=== PATIENT | male | born 1995 | race Caucasian/White ===

== ENCOUNTER 2020-02-26 19:32 | Emergency (ER) | payer OTHER, SELFPAY ==
[2020-02-26 20:23] VITALS: BP 129/78; PULSE 67; RESP 16; TEMP 36.8; O2SAT 99; BMI 25.0
--- NOTE | 2020-02-26 20:50 | W.ED.WOUNDLC ---
HPI - Wound/Laceration General: Chief Complaint: Wound/Laceration Stated Complaint: finger lac Time Seen by Provider: 02/26/20 20:50 History of Present Illness: HPI narrative: Is a 24-year-old male comes to the ED with a laceration to left index finger. Patient says he actually cut it with a knife. Patient says he is up-to-date on his tetanus shot received 1 within the last 30 years. Associated symptoms: Denies chills, fever(s), nausea or vomiting Review of Systems Const: Denies: fever(s), chills or fatigue Eyes: Denies: change in vision or eye discomfort ENMT: Denies: throat pain, odynophagia, nasal discharge or nasal congestion Card: Denies: chest pain, palpitations, edema, swelling of feet/ankles, dyspnea on exertion or orthopnea Resp: Denies: dyspnea, productive cough or non-productive cough GI: Denies: abdominal pain, nausea, vomiting, diarrhea, constipation or hematochezia : Denies: flank pain, difficulty urinating, dysuria or hematuria Musc: Denies: neck pain, back pain or extremity swelling Skin/Breast: Reports: new lesions (laceration to index finger of left hand); Denies: rash Neuro: Denies: headache(s), numbness in extremities or weakness in extremities Physical Exam Const: COMMON NORMALS: no acute distress, patient oriented x3, healthy appearing and alert GENERAL APPEARANCE: cooperative and comfortable HENMT: COMMON NORMALS: normocephalic HEAD & SCALP: normocephalic MOUTH: Normal oral and palatal mucosa present THROAT: posterior oropharynx normal and uvula midline Neck/C-Spine: COMMON NORMALS: supple GENERAL: Yes normal visual inspection Resp: COMMON NORMALS: normal respiratory effort, No retractions, No use of accessory muscles and clear to auscultation bilaterally AUSCULTATION: clear to auscultation bilaterally Cardio: COMMON NORMALS: regular rate, regular rhythm, S1 normal heart sound present, S2 normal heart sound present, No gallops present (Cardio), No clicks present (Cardio), No murmurs present (Cardio) and Peripheral pulses 2+ throughout RATE: regular rate RHYTHM: regular rhythm HEART SOUNDS: S1 normal heart sound present and S2 normal heart sound present PERIPHERAL PULSES: Peripheral pulses 2+ throughout GI: COMMON NORMALS: Normal to inspection, nondistended, normoactive bowel sounds present, Soft to palpation, non-tender and no masses PALPATION: Yes Soft to palpation : COMMON NORMALS: Yes no CVA tenderness BLADDER/KIDNEY EXAM: Yes no CVA tenderness Back/Pelvis: COMMON NORMALS: no CVA tenderness Extremity: NARRATIVE EXTREMITY EXAM: Patient has a 1 cm superficial linear laceration to left index finger. No signs of infection seen. GENERAL: Yes normal exam except as noted Neuro: COMMON NORMALS: patient oriented x3 and moves all extremities SENSORIUM/ORIENTATION: Yes alert Skin: NARRATIVE SKIN EXAM: Patient has a 1 cm superficial linear laceration to left index finger. No signs of infection seen. GENERAL SKIN EXAM: dry skin Procedures Laceration Laceration 1: Site: hand (index finger) Side (If applicable): left Size (cm): 1 Description: linear and clean Depth: simple, single layer Local Anesthetic: lidocaine 1% Amount of anesthesia used (mL): 10 Pre-repair: irrigated extensively (with normal saline and cleaned with alcohol swab) Skin layer closed with: nylon Size (cm): 4-0 Number of sutures: 3 Technique: simple, interrupted Course Vital Signs: Vital signs: Vital Signs Temperature 98.3 F 02/26/20 20:23 Pulse Rate 79 02/26/20 21:50 Respiratory Rate 18 02/26/20 21:50 Blood Pressure 108/67 02/26/20 21:50 Pulse Oximetry 95 02/26/20 21:50 MDM - Wound/Laceration MDM Narrative: Medical decision making narrative: Patient is a 24-year-old male comes to the next finger left hand. Patient is up-to-date on his tetanus and says he received a tetanus shot within the last 3 years. Patient's laceration was approximately 1 cm linear and superficial. I irrigated laceration with normal saline and cleaned with alcohol swab. Used local lidocaine 1%. Laceration was closed with 3 sutures. Patient was given instructions on how to care for laceration and told to have sutures removed in about 10 days by her medical provider. He was sent home with a prescription for cephalexin as prophylactic treatment. Return to ED precautions given. Patient understood plan. Discharge Plan Discharge Patient Disposition: Home Clinical Impression: Laceration Condition: Stable Prescriptions: New cephalexin 500 mg capsule 500 mg PO Q8H 5 Days Qty: 15 RF: 0 Discharge Orders: Discharge Order (Routine); Ordered 02/26/20 Ordered By: Jonny Merino Discharge Diet: Regular Discharge Activity: Limit activity as instructed Patient Instructions: Finger Laceration (ED) Activity Restrictions/Additional Instructions: Take full course of antibiotics as prescribed. Keep laceration site clean and dry for the next 48 hours. Then after that you can clean and re-bandage daily. Watch for signs of infection such as redness, warmth, increased tenderness and puslike drainage. If you see the signs of infection return to the ED, urgent care or PCP for reevaluation. call your PCP to schedule a follow-up appointment for reevaluation and suture removal in about 10 days. Follow discharge plans as discussed. You can return to the ED if symptoms worsen. Discharge Date/Time: 02/26/20 21:52 Coding Level of Care Code ED [employer] Exam Comprehensive
[2020-02-26] MEDS: cephALEXin 500 mg Capsule PO (21:42)
[2020-02-26] MEDS: lidocaine 1% INJ 20 mL INJECTION (21:42)
[2020-02-26 21:50] VITALS: BP 108/67; PULSE 79; RESP 18; O2SAT 95
== END 2020-02-26 21:52 | disposition home or self-care (01) ==
PROVIDERS: Emergency Provider Physician Assistant
DX: S61.211A Laceration without foreign body of left index finger without damage to nail, initial encounter (principal); W26.0XXA Contact with knife, initial encounter
CPT/HCPCS: 12001; 12345; 99281; 99283